=== PATIENT | female | born 1990 | race Caucasian/White ===

== ENCOUNTER 2020-05-05 15:14 | Outpatient (CLI) | payer MEDICAID | END 2020-05-05 23:59 | disposition home or self-care (01) | LOC: STAR 15:14 | PROVIDERS: ATTEND Orthopaedic Surgery | DX: Z02.9 Encounter for administrative examinations, unspecified (principal) ==

== ENCOUNTER 2020-05-13 14:46 | Outpatient (CLI) | payer MEDICAID | END 2020-05-13 23:59 | disposition home or self-care (01) | LOC: STAR 14:46 | PROVIDERS: ATTEND Orthopaedic Surgery | DX: Z20.828 Contact with and (suspected) exposure to other viral communicable diseases (principal) | CPT/HCPCS: 87635 ==

== ENCOUNTER 2020-05-18 08:40 | Day surgery (SDC) | payer MEDICAID ==
[~2020-05-18] VITALS: Ht 162.6 cm; Wt 121.0 kg
[~2020-05-18 08:40] MED LIST: FENTANYL PF 100 MCG/2ML ONE; MIDAZOLAM 1 MG/ML, 2ML ONE
[2020-05-18 09:01] VITALS: BP 127/85
[2020-05-18] MEDS ORDERED: CHLORHEXIDINE 15 ML UDC MM STA (09:05)
[2020-05-18] MEDS ORDERED: LACTATED RINGERS 1,000 ML IV SCH (09:30)
[2020-05-18] MEDS ORDERED: LIDOCAINE/PF 1%, 30ML ONE (09:35)
[2020-05-18] MEDS ORDERED: EPINEPHRINE 1 MG/ML, 1ML ONE (09:35)
[2020-05-18] MEDS ORDERED: BUPIVACAINE/PF 0.5% ONE (09:35)
[2020-05-18] MEDS ORDERED: EPINEPHRINE TOPICAL SOLN 1 MG/ML, 30ML ONE (09:35)
[2020-05-18] MEDS ORDERED: ROPIvacaine/PF 0.5%, 30 ML ONE (09:35)
[2020-05-18 09:43] LABS: HCG UR SG 1.019 (1.003-1.030)
[2020-05-18] MEDS ORDERED: HYDROcodone/APAP 7.5-325MG/15ML UDC PO PRN (10:00)
[2020-05-18] MEDS ORDERED: KETOROLAC 30 MG/1 ML IVPush PRN (10:00)
[2020-05-18] MEDS ORDERED: MEPERIDINE/PF 25MG/0.5ML IVPush PRN (10:00)
[2020-05-18] MEDS ORDERED: PROMETHAZINE 25 MG/ML, 1ML IVPush PRN (10:00)
[2020-05-18] MEDS ORDERED: PROPOFOL 10 MG/ML, 20ML ONE (10:12)
[2020-05-18] MEDS ORDERED: CEFAZOLIN 1,000 MG ONE (10:12)
[2020-05-18] MEDS ORDERED: ROCURONIUM 10MG/ML,5ML ONE (10:12)
[2020-05-18] MEDS ORDERED: NEOSTIGMINE 1 MG/ML, 10ML ONE (10:12)
[2020-05-18] MEDS ORDERED: SUCCINYLCHOLINE 20 MG/ML, 10ML ONE (10:12)
[2020-05-18] MEDS ORDERED: GLYCOPYRROLATE 0.2MG/1ML, 5ML ONE (10:12)
[2020-05-18] MEDS ORDERED: DEXAMETHASONE 4 MG/ML, 1ML ONE ×2 (10:12)
[2020-05-18] MEDS ORDERED: FENTANYL PF 100 MCG/2ML ONE ×3 (11:17→14:17)
[2020-05-18] MEDS ORDERED: KETOROLAC 30 MG/1 ML ONE (13:49)
[2020-05-18] MEDS ORDERED: OXYcodone 5 MG/5 ML ORAL.SOL UDC ONE ×2 (13:49→14:07)
[2020-05-18] MEDS: OXYcodone 5 MG/5 ML ORAL.SOL UDC PO PRN ×2 (13:52→14:08)
[2020-05-18] MEDS ORDERED: HYDROmorphone 1 MG/ML, 1ML INJ ONE (13:56)
[2020-05-18] MEDS: HYDROmorphone 1 MG/ML, 1ML INJ IVPush PRN ×3 (13:59→15:40)
[2020-05-18] MEDS: FENTANYL PF 100 MCG/2ML IV PRN ×2 (14:22→14:32)
== END 2020-05-18 17:10 | disposition home or self-care (01) ==
LOC: OUT 08:40
PROVIDERS: ATTEND Orthopaedic Surgery
DX: S83.511A Sprain of anterior cruciate ligament of right knee, initial encounter (principal); F17.210 Nicotine dependence, cigarettes, uncomplicated; E66.01 Morbid (severe) obesity due to excess calories; Z68.42 Body mass index [BMI] 45.0-49.9, adult; X58.XXXA Exposure to other specified factors, initial encounter; Y93.89 Activity, other specified; Y92.89 Other specified places as the place of occurrence of the external cause; Y99.8 Other external cause status; Z79.2 Long term (current) use of antibiotics; Z79.899 Other long term (current) drug therapy; Z72.89 Other problems related to lifestyle; Z82.49 Family history of ischemic heart disease and other diseases of the circulatory system; Z83.3 Family history of diabetes mellitus
CPT/HCPCS: 29888; 64447; 81025; C1713; J0171; J0330; J0690; J1100; J1170; J1885; J2250; J2704; J2710; J3010; J7120; 87635; J2795